=== PATIENT | female | born 2000 | race Caucasian/White ===

== ENCOUNTER 2019-12-20 22:44 | Emergency (ER) | payer MEDICAID ==
[~2019-12-20] VITALS: Ht 160 cm; Wt 68.0 kg
[2019-12-20 23:05] VITALS: Ht 160 cm; Wt 68.0 kg
[2019-12-21 03:15] VITALS: BP 105/68
== END 2019-12-21 03:15 | disposition home or self-care (01) ==
LOC: ED 22:44
DX: J06.9 Acute upper respiratory infection, unspecified (principal)
CPT/HCPCS: 87804; Q0092